=== PATIENT | male | born 1990 ===

== ENCOUNTER 2017-12-03 11:51 | Emergency (ER) | payer BC ==
[2017-12-03 12:32] VITALS: BP 109/67; PULSE 81; RESP 18; TEMP 97.7; O2SAT 100
--- NOTE | 2017-12-03 13:16 | ED PDOC ---
HPI: General Adult Time Seen by Provider: 12/03/17 12:55 Chief Complaint (Nursing): ENT Problem Chief Complaint (Provider): Throat pain History Per: Patient History/Exam Limitations: no limitations Onset/Duration Of Symptoms: Days (Wednesday) Current Symptoms Are (Timing): Still Present Additional Complaint(s): Pt. with sore throat, but able to swallow. Left neck lymph node swelling and pain. Also bodyaches. No headache, dizziness, weakness. Has nasal congestion. No cough. No fever. No abd pain, chest pain, dyspnea. Has a redness on the scalp on the left. Seen at [facility] for it and dx with cellulitis and they said they don't know what to say about the other symptoms. Pt. denies diarrhea, vomit, nausea. No vision changes. Takes ibuprofen off and on for it. Significant other in room also with sore throat. Past Medical History Reviewed: Nursing Documentation, Vital Signs Vital Signs: Last Vital Signs Temp 97.7 F 12/03/17 12:28 Pulse 81 12/03/17 12:28 Resp 18 12/03/17 12:28 BP 109/67 12/03/17 12:28 Pulse Ox 100 12/03/17 13:19 - Medical History PMH: No Chronic Diseases - Surgical History Surgical History: Tonsillectomy - Family History Family History: States: Unknown Family Hx - Living Arrangements Living Arrangements: With Family - Social History Alcohol: None Drugs: Denies - Home Medications Home Medications: Ambulatory Orders Medication Instructions Recorded Ibuprofen [Motrin] 600 mg PO TID 7 Days tab 12/03/17 - Allergies Allergies/Adverse Reactions: Allergies Allergy/AdvReac Type Severity Reaction Status Date / Time Penicillins Allergy RASH Verified 12/03/17 12:28 Review of Systems ROS Statement: Except As Marked, All Systems Reviewed And Found Negative ENT: Positive for: Nose Congestion, Throat Pain Musculoskeletal: Positive for: Other (body aches) Physical Exam - Reviewed Nursing Documentation Reviewed: Yes Vital Signs Reviewed: Yes - Physical Exam Appears: Positive for: Non-toxic, No Acute Distress Head Exam: Positive for: ATRAUMATIC, NORMAL INSPECTION, NORMOCEPHALIC Skin: Positive for: Normal Color, Warm, DRY Eye Exam: Positive for: EOMI, Normal appearance, PERRL ENT: Positive for: Nasal Congestion. Negative for: Pharyngeal Erythema, Tonsillar Exudate Neck: Positive for: Painless ROM, Supple. Negative for: Normal (mild tender left anterior sternocleidomastoid; no gross lymph nodes palpated. no posterior neck tender; no erythema or dc on neck.) Cardiovascular/Chest: Positive for: Regular Rate, Rhythm Respiratory: Positive for: CNT, Normal Breath Sounds Gastrointestinal/Abdominal: Positive for: Normal Exam, Soft. Negative for: Tenderness Back: Positive for: Normal Inspection. Negative for: L CVA Tenderness, R CVA Tenderness Extremity: Positive for: Normal ROM. Negative for: Tenderness, Pedal Edema Neurologic/Psych: Positive for: Alert, budget coordinator II-XII, Oriented. Negative for: Motor/Sensory Deficits, Aphasia, Facial Droop - Laboratory Results Interpretation Of Abn Labs: no acute - ECG O2 Sat by Pulse Oximetry: 100 Pulse Ox Interpretation: Normal - Progress ED Course And Treament: 1405: Stable. AAOx3. Pain free. Tolerated PO. Fu with pcp. Disposition - Clinical Impression Clinical Impression: URI (upper respiratory infection), Cellulitis - Patient ED Disposition Is Patient to be Admitted: No Counseled Patient/Family Regarding: Studies Performed, Diagnosis, Need For Followup, Rx Given - Disposition Referrals: [facility] [Outside] - 12/06/17 Disposition: Routine/Home Disposition Time: 14:06 Condition: STABLE Additional Instructions: Return if not better in 3 days. Continue your clindamycin. Prescriptions: Ibuprofen [Motrin] 600 mg PO TID 7 Days tab Instructions: Cellulitis and Erysipelas (Skin Infections), Viral Upper Respiratory Infection, Adult (DC) Forms: [employer] ([place]ian), [facility] ED School/Work Excuse
== END 2017-12-03 15:35 | disposition left against medical advice (07) ==
LOC: H.ER 11:51
DX: L03.221 Cellulitis of neck (principal); J06.9 Acute upper respiratory infection, unspecified; Z88.0 Allergy status to penicillin
CPT/HCPCS: 87070; 87430; 87804; 96372; 99283; J1885